=== PATIENT | female | born 1950 | race Caucasian/White ===

== ENCOUNTER 2023-09-18 08:10 | Outpatient (RCR) | payer MEDICARE, SELFPAY | END 2023-09-18 23:59 | disposition home or self-care (01) | LOC: RPT 08:10 | PROVIDERS: ATTENDING PHYSICIAN Internal Medicine Geriatric Medicine | DX: N39.3 Stress incontinence (female) (male) (principal); N39.41 Urge incontinence; M62.89 Other specified disorders of muscle; Z73.6 Limitation of activities due to disability | CPT/HCPCS: 97163; 97530 ==

== ENCOUNTER 2024-01-03 11:01 | Outpatient (RCR) | payer MEDICARE, SELFPAY | END 2024-01-03 23:59 | disposition home or self-care (01) | LOC: RPT 11:01 | PROVIDERS: ATTENDING PHYSICIAN Internal Medicine Geriatric Medicine | DX: N39.3 Stress incontinence (female) (male) (principal); N39.41 Urge incontinence; M62.89 Other specified disorders of muscle; Z73.6 Limitation of activities due to disability | CPT/HCPCS: 97014; 97110; 97112; 97530 ==

== ENCOUNTER 2024-01-31 11:07 | Outpatient (RCR) | payer MEDICARE, SELFPAY | END 2024-02-01 14:26 | disposition home or self-care (01) | LOC: RPT 11:07 | PROVIDERS: ATTENDING PHYSICIAN Internal Medicine Geriatric Medicine | DX: N39.3 Stress incontinence (female) (male) (principal); N39.41 Urge incontinence; M62.89 Other specified disorders of muscle; Z73.6 Limitation of activities due to disability | CPT/HCPCS: 97014; 97110; 97112; 97530 ==

== ENCOUNTER → 2024-10-15 11:12 | Outpatient (REF) | payer MEDICARE, SELFPAY | LOC: RAD 11:12 | PROVIDERS: ATTENDING PHYSICIAN Internal Medicine Critical Care Medicine | DX: J41.8 Mixed simple and mucopurulent chronic bronchitis (principal) | CPT/HCPCS: 71046 ==

== ENCOUNTER → 2025-09-08 12:40 | Outpatient (REF) | payer MEDICARE, SELFPAY | LOC: WDC 12:40 | PROVIDERS: ATTENDING PHYSICIAN Internal Medicine Geriatric Medicine | DX: Z12.31 Encounter for screening mammogram for malignant neoplasm of breast (principal) | CPT/HCPCS: 77063; 77067 ==